=== PATIENT | female | born 1950 | race Caucasian/White ===

== ENCOUNTER 2024-10-15 16:07 | Emergency (ER) | payer MEDICARE, SELFPAY ==
[2024-10-15] VITALS (39 sets, daily range): BP systolic 155–229; BP diastolic 75–135; PULSE 84–117; RESP 18–33; TEMP 36.6; O2SAT 92–100
--- NOTE | ~2024-10-15 | XR_ITS ---
XR chest 1V portable Ordering provider: Linnea Yang MD History: 74 years Female with . shortness of breath . Comparison: None. FINDINGS: MEDIASTINUM: The cardiac silhouette is not enlarged. LUNGS: No infiltrates, effusions or pneumothorax. OTHER: No free air under the diaphragm. IMPRESSION: No acute cardiopulmonary pathology. Reviewed, dictated and finalized at location A.
--- NOTE | 2024-10-15 16:12 | ED_ITS ---
HPI - General Adult General Chief complaint: Upper Respiratory Infection Stated complaint: sob Time Seen by Provider: 10/15/24 16:12 Source: patient and family Mode of arrival: ambulatory Limitations: no limitations History of Present Illness HPI narrative: 74 years old white female came from home by private car complaining of been feeling sick with shortness of breath over 1 week, got worse over the last 3 days, patient been not able to eat, sleep, fever, productive cough. Last time was seen by a physician over 5 years ago, does not take medicines at home. Smokes 1-1 and half pack of cigarettes a day, patient is DNR. Related Data Allergies Allergy/AdvReac Type Severity Reaction Status Date / Time acetaminophen (From Percocet) Allergy Severe Hives Verified 10/15/24 16:11 oxycodone (From Percocet) Allergy Severe Hives Verified 10/15/24 16:11 Review of Systems 2 Review of Systems: All systems reviewed & are unremarkable except as noted in HPI and below Exam 2 Narrative: General appearance: Well-developed, well-nourished , labored breathing Skin: Normal color Head: Normocephalic, nontraumatic Eyes: Clear conjunctiva ENT: Oropharynx normal, ears normal, nose normal Neck: Supple, nontender Chest and respiratory: Airway patent, labored breathing, mild diminution of air entry bilaterally, scattered rhonchi and wheezing bilaterall Heart: y tachycardia, regular rhythm Abdomen: Soft, nontender, no organomegaly, quiet bowel sounds Vascular: Normal peripheral pulses, normal capillary refill. 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 DIOP, HOSPITALIST AT [facility] Date: 10/15/24 Time: 19:14 Vital Signs Vital signs: Vital Signs Pulse Oximetry 97 10/15/24 16:07 Oxygen Delivery Room Air 10/15/24 16:07 Temperature 36.6 C 10/15/24 16:08 Pulse Rate 97 10/15/24 19:46 Respiratory Rate 20 10/15/24 19:46 Blood Pressure 174/85 H 10/15/24 19:46 Pulse Oximetry 95 10/15/24 19:46 Oxygen Delivery Room Air 10/15/24 19:46 Medical Decision Making [facility] Narrative Medical decision making narrative: patient presents with shortness of breath Vital signs showing blood pressure 200/127, heart rate 112, respiration 24 otherwise within normal limit Physical examination showing a patient with labored breathing, widespread wheezing and rhonchi bilaterally Differential diagnosis include pneumonia, COPD exacerbation, congestive heart failure, pleural effusion Blood workup today includes CBC, CMP, proBNP, troponin, lactic acid, blood culture, CRP and coag showed SODIUM 123, CHLORIDE 86, CREATININE 1.16, C- REACTIVE PROTEIN 10.2 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8-10.8) K/mm3 RBC 4.20 (4.20-5.40) M/mm3 Hgb 12.7 (11.7-13.8) g/dL Hct 37.1 (35.0-42.0) % MCV 88.3 (78.0-102.0) fL MCH 30.2 (27.0-31.0) pg MCHC 34.2 (32-36) g/dL RDW 12.5 (11.6-14.4) % Plt Count 360 (150-420) K/mm3 MPV 9.6 (9.2-11.8) fl Immature Gran % (Auto) 0.7 H (0.0-0.0) % Neut % (Auto) 84.2 H (50.0-70.0) % Lymph % (Auto) 9.1 L (18.0-42.0) % Frio % (Auto) 5.7 (2.0-11.0) % Eos % (Auto) 0.1 L (1.0-6.0) % Baso % (Auto) 0.2 (0.0-1.0) % Lymph # (Auto) 0.74 L (1.10-4.50) K/mm3 Frio # (Auto) 0.46 (0.10-0.90) K/mm3 Eos # (Auto) 0.01 L (0.02-0.50) K/mm3 Baso # (Auto) 0.02 (0.00-0.10) K/mm3 Abs Immat Gran (auto) 0.06 H (0.00-0.00) K/mm3 Absolute Neuts (auto) 6.82 (1.70-7.20) K/mm3 Absolute Nucleated RBC 0.00 (0.00-0.00) K/mm3 Nucleated RBC % 0.0 (0-0.0) % PT 10.8 (9.50-12.1) Seconds INR 1.0 APTT 33.2 H (23.9-30.70) Sec Sodium 123 L (136-145) mmol/L Potassium 3.8 (3.5-5.1) mmol/L Chloride 86 L (98-108) mmol/L Carbon Dioxide 23 (21-32) mmol/L Anion Gap 14 H (4-12) mmol/L BUN 12 (7-18) mg/dL Creatinine 1.16 H (0.55-1.02) mg/dL Estim Creat Clear Calc 36 ml/min Estimated GFR 46 L (59 - ) Glucose 121 H (70-99) mg/dL Calculated Osmolality 256 L (285-295) mOsm/kg Lactic Acid 1.4 (0.4-2.0) mmol/L Calcium 9.4 (8.5-10.1) mg/dL Total Bilirubin 0.4 (0.00-1.00) mg/dL AST 40 H (15-37) U/L ALT 24 (14-59) U/L Alkaline Phosphatase 90 (46-116) U/L Troponin I 56.5 (0.00-60.4) ng/L C-Reactive Protein 10.2 H (0.0-0.9) mg/dL NT-Pro-B Natriuret Pep 2536 H (0-125) pg/mL Total Protein 8.1 (6.4-8.2) g/dL Albumin 3.3 L (3.4-5.0) g/dL ABG Data ABG results: 10/15/24 16:39 Puncture Site Left radial ABG pH 7.40 ABG pCO2 31.3 L ABG pO2 129.7 H ABG HCO3 19.0 L ABG O2 Saturation 98.6 H ABG Base Excess -4.7 L Oxyhemoglobin 97.2 O2 Delivery Device Other device O2 Liters/Min 8.0 Imaging Data Radiologist's impression: Impressions Chest X-Ray 10/15/24 16:49 IMPRESSION: No acute cardiopulmonary pathology. ECG Data EKG #1: Attestation: I personally reviewed and interpreted this ECG as follows: ECG completion date: 10/15/24 Interpretation: SINUS TACHYCARDIA AT 1 MINUTE, RHYTHM EKG, NO OLD EKG AVAILABLE FOR COMPARISON Critical Care Time Critical Care Time Critical Care Time: Yes Total Critical Care Time: 30 Discharge Plan Discharge Clinical Impression: Acute hypoxic respiratory failure, COPD (chronic obstructive pulmonary disease), Hypertension, Congestive heart failure, Hyponatremia Patient Disposition: Acute Care Hospital Condition: Guarded Prognosis Patient Language: Ghanaian Follow-up/Referrals: UNKNOWN,DOCTOR [Non-Staff] -
--- NOTE | 2024-10-15 16:19 | ECG_ITS ---
Test Date: 2024-10-15 16:55:21 Measurements Intervals [place] Rate: 109 P: 73 HI: 168 QRS: 30 QRSD: 76 T: 74 QT: 315 QTc: 425 Interpretive Statements SINUS TACHYCARDIA No previous ECG available for comparison Electronically Signed On 10-16-2024 14:12:26 CDT by Radha Nagy M.D.
--- NOTE | 2024-10-15 16:30 | PC.NURSE ---
ERP aware of elevated blood pressure.
[2024-10-15] MEDS: IPRATROPIUM 0.5 MG/ALBUTEROL SULFATE 2.5 MG AMPUL.NEB 3 ML INHALATION (16:32)
--- OUTSIDE RECORDS SUMMARY | 2024-10-15 16:36 | XMS_ITS | Clinical Summary ---
Author Organization [facility] Address [address] [place] [address] Phone Care Team Providers Care Extension Supervisor Name Role Phone Gerard Orozco MD Primary Care Provider [phone] Allergies Active Allergy Reactions Criticality Noted Date Comments Oxycodone-Acetaminophen Unknown Silver Sulfadiazine Other (see Comments) Caused burning to skin Medications omeprazole (PRILOSEC) 40 MG CAPSULE DELAYED RELEASE Acti ve amLODIPine (NORVASC) 5 MG Tablet Active Cholecalciferol (VITAMIN D) 2000 UNIT Tablet Take by mouth. Active cyanocobalamin 1000 MCG Tablet Take 1,000 mcg by mouth daily. Active Multiple Vitamins-Minera ls (MULTIVITAMIN PO) Take by mouth. Active gabapentin (NEURONTIN) 100 MG Capsule Pt is to take 100 mg at bed time for 7 days then increase to 1 tab twice a day. 60 Cap 3 09/22/2017 Active Active Problems Patient Care Coordination No te Formatting of this note migh t be different from the original. NO DRUG 04/25/18 NO DRUG 10/25/17 01/20/2017: Patient does not qualify for OCM Problem Noted Date Diagnosed Date Pulmonary nodules 07/28/2017 Malignant neoplasm of sigmoi d colon -- stage [id number] 2 MMR present Resolved Problems Problem Noted Date Diagnosed Date Resolved Date Drug-induced neutropenia Family History Medical History Relation Name Comments Cancer Father possibly f rom lung cancer, but patient not sure Relation Name Status Comments Father Social History Tobacco Use Types Packs/Day Years Used Date Smoking Tobacco: Every Day Cigarettes Smokeless Tobacco: Never Alcohol Use Standard Drinks/Week Comments Not Asked 0 (1 standard drink = 0.6 oz pur e alcohol) Comments Unknown Sex and Gender Information Value Date Recorded Sex Assigned at Not on file Legal Sex Female 8:08 AM CDT Gender Identity Not on file Sexual Orientation Not on file Last Filed Vital Signs Vital Sign Reading Time Taken Comments Blood Pressure 138/100 10/27/2017 1:11 PM CDT Pulse 90 10/27/2017 1:11 PM CDT Temperature 36.6 C (97.8 F) 10/27/2017 1:11 PM CDT Respiratory Rate - - Oxygen Saturation 95% 10/27/2017 1:11 PM CDT Inhaled Oxygen Concentration - - Weight 83.5 kg (184 lb) 10/27/2017 1:11 PM CDT Height 157.5 cm (5' 2 ) 07/28/2017 12:57 PM [employer] D[employer] CONSULTANT Body Mass Index 33.65 07/28/2017 12:57 PM [employer] D[employer] CONSULTANT Plan of Treatment Health Maintenance Due Date Last Done Comments DEXA Bone Density 1950 Hepatitis C Virus (HCV) Screening 1950 TdaP Immunization 1950 SARS-COV-2 Immunization (#1) 1955 Pneumococcal Immunization (5 0+ years) (1 of 2 - PCV) 1969 Zoster Immunization (1 of 2) 1969 Cologuard 01/27/2000 Immunochemical Fecal Occult Blood 01/27/2000 Mammogram 01/27/2000 Colonoscopy 08/18/2023 08/17/2013 Colorectal Cancer Screening 08/18/2023 Influenza Immunization (#1) 2024 Respiratory Syncytial Virus (RSV) Immunization (Adult) (1 - 1-dose 75+ series) 2025 08/17/2013 Hepatitis B Immunization Aged Out No longer eligible based on patient's age to complete this topic Meningococcal Immunization (ACWY) Aged Out No longer eligible based on patient's age to complete this topic Rotavirus Immunization Aged Out No lo nger eligible based on patient's age to complete this topic Procedures Procedure Name Priority Date/Time Associated Diagnosis Comments COLONOSCOPY Routine 08/17/2013 from Last 3 Months or Most Recently Relevant to Health Maintenance Results * COLONOSCOPY (08/17/2013) us Unknown Provider PROCEDURE/MINOR SURGICAL ORDERA BLES Final Result from Last 3 Months or Most Recently Relevant to Health Maintenance Insurance MEDICARE [employer] Care Teams Extension Supervisor Relationship Specialty [place] [address] [place], [place] [id number] PCP - General Family Medicine 10/09/15
[2024-10-15 16:43] LABS: Base Excess ABG -4.7 mmol/L (0-2); Oxygen Saturation ABG 98.6 % (95-97); Oxyhemoglobin 97.2 % (94-100); PCO2 ABG 31.3 mmHg (35-45); PO2 ABG 129.7 mmHg (75-85)
[2024-10-15 16:47] LABS: Basophils Absolute Auto 0.02 K/mm3 (0.00-0.10); Basophils Percent Auto 0.2 % (0.0-1.0); Eosinophils Absolute Auto 0.01 K/mm3 (0.02-0.50); Eosinophils Percent Auto 0.1 % (1.0-6.0); Hematocrit 37.1 % (35.0-42.0); Hemoglobin 12.7 g/dL (11.7-13.8); Immature Granulocyte Absolute 0.06 K/mm3 (0.00-0.00); Immature Granulocyte Percent A 0.7 % (0.0-0.0); Lymphocytes Absolute Auto 0.74 K/mm3 (1.10-4.50); Lymphocytes Percent Auto 9.1 % (18.0-42.0); Mean Corpuscular HGB Conc 34.2 g/dL (32-36); Mean Corpuscular Hemoglobin 30.2 pg (27.0-31.0); Mean Corpuscular Volume 88.3 fL (78.0-102.0); Mean Platelet Volume 9.6 fl (9.2-11.8); Monocytes Absolute Auto 0.46 K/mm3 (0.10-0.90); Monocytes Percent Auto 5.7 % (2.0-11.0); Neutrophils Absolute Auto 6.82 K/mm3 (1.70-7.20); Neutrophils Percent Auto 84.2 % (50.0-70.0); Platelet Count Result 360 K/mm3 (150-420); Red Cell Distribution Width 12.5 % (11.6-14.4); White Blood Count 8.1 K/mm3 (4.8-10.8)
[2024-10-15 16:48] LABS: Modified Allen's Test Pass; Site Drawn LEFT RADIAL
[2024-10-15 16:49] LABS: Device OTHER DEVICE
--- OUTSIDE RECORDS SUMMARY | 2024-10-15 16:49 | XMS_ITS | Encounter Summary ---
Author Organization 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 Role Phone Unavailable Primary Care Provider Unavailabl e Encounter Details Date Type Department Care Team (Late st Contact Info) Description 10/27/2017 Abstract [facility] CONVERSION [address] [place] [address] , Generic ConversionMD Social History Tobacco Use Types Packs/Day Years Used Date Smoking Tobacco: Never Assessed Comments Unknown Sex and Gender Information Value Date Recorded Sex Assigned at Not on file Legal Sex Female 5:44 PM CDT Gender Identity Not on file Sexual Orientation Not on file documented as of this encounter Plan of Treatment Not on file documented as of this encounter Visit Diagnoses Not on filedocumented in this encounter
--- OUTSIDE RECORDS SUMMARY | 2024-10-15 16:49 | XMS_ITS | Clinical Summary ---
Author Organization [facility] Address [address] [place] [address] Care Team Providers Care Head Of English Name Role Phone Unavailable Primary Care Provider Unavailabl e Social History Tobacco Use Types Packs/Day Years Used Date Smoking Tobacco: Never Assessed Comments Unknown Sex and Gender Information Value Date Recorded Sex Assigned at Not on file Legal Sex Female 5:44 PM CDT Gender Identity Not on file Sexual Orientation Not on file Last Filed Vital Signs Vital Sign Reading Time Taken Comments Blood Pressure 148/88 04/28/2017 2:49 PM CAR SALESMAN Pulse 105 04/28/2017 2:49 PM CAR SALESMAN Temperature - - Respiratory Rate - - Oxygen Saturation - - Inhaled Oxygen Concentration - - Weight 82.1 kg (181 lb) 04/28/2017 2:49 PM CAR SALESMAN Height 162.6 cm (5' 4 ) 04/28/2017 2:49 PM CAR SALESMAN Body Mass Index 31.07 04/28/2017 2:49 PM CAR SALESMAN Plan of Treatment Health Maintenance Due Date Last Done Comments Colorectal Cancer Screening Colonoscopy (10 Years) 1950 Hepatitis C 01/27/1968 DTaP, Tdap and Td Vaccines ( 1 - Tdap) 1969 Mammogram Screening 1990 Pneumococcal Vaccine: 50+ Ye ars (1 of 1 - PCV) 01/27/2000 Zoster Vaccines (1 of 2) 01/27/2000 Dexa Scan (General) 2015 COVID-19 Vaccine ( - 2023-2 5 season) 2024 RSV Immunization or 60+ Years (1 - 1-dose 75+ series) 2025 Meningococcal B Vaccine Aged Out No l onger eligible based on patient's age to complete this topic Meningococcal Vaccine Aged Out No anna vannesa eligible based on patient's age to complete this topic RSV Immunizations Under 20 Months Aged Out No longer eligible based on patient's age to complete this topic
[2024-10-15 17:00] LABS: Partial Thromboplastin Time 33.2 Sec (23.9-30.70); Prothrombin Time 10.8 Seconds (9.50-12.1)
[2024-10-15 17:05] LABS: Lactic Acid Reflex 1.4 mmol/L (0.4-2.0)
[2024-10-15 17:06] LABS: Alanine Aminotransferase 24 U/L (14-59); Albumin Level 3.3 g/dL (3.4-5.0); Alkaline Phosphatase 90 U/L (46-116); Anion Gap 14 mmol/L (4-12); Aspartate Amino Transferase 40 U/L (15-37); Bilirubin,Total 0.4 mg/dL (0.00-1.00); Blood Urea Nitrogen 12 mg/dL (7-18); CRP 10.2 mg/dL (0.0-0.9); Calcium 9.4 mg/dL (8.5-10.1); Carbon Dioxide 23 mmol/L (21-32); Chloride 86 mmol/L (98-108); Estimated CRCL calculation 36 ml/min; Estimated Glomerular Filt Rate 46; Glucose 121 mg/dL (70-99); Osmolality Calculated 256 mOsm/kg (285-295); Potassium 3.8 mmol/L (3.5-5.1); Sodium 123 mmol/L (136-145); Total Protein 8.1 g/dL (6.4-8.2); Troponin I 56.5 ng/L (0.00-60.4)
[2024-10-15] MEDS: methylPREDNISolone SOD SUCC 125 MG VIAL IV PUSH (17:07)
[2024-10-15 17:12] LABS: NT Pro B Type Natriuretic Pept 2536 pg/mL (0-125)
[2024-10-15] MEDS: NITROGLYCERIN OINTMENT 1 INCH DOSE TRANSDERM ×2 (17:53→19:07)
[2024-10-15] MEDS: cloNIDine HCL 0.1 MG TABLET PO ×2 (17:53→20:37)
[2024-10-15] MEDS: FUROSEMIDE INJ 40 MG/4 ML VIAL 60 MG IV PUSH (18:38)
--- NOTE | 2024-10-15 18:38 | PC.NURSE ---
Nitro paste removed per ERP Dr. Yang
--- NOTE | 2024-10-15 18:55 | PC.NURSE ---
[facility]. REPORT RECEIVED FROM POLLO WEBER
--- NOTE | 2024-10-15 20:13 | PC.NURSE ---
PATIENT REPORTS THAT SHE HAD ALL HER CANCER TREAT[place] [facility] [place]. HER BLADDER/COLON CANCER URGERY AND UROSTOMY PLACEMENT WAS DONE AT [facility] IN [facility].
--- NOTE | 2024-10-15 20:34 | PC.NURSE ---
PATIENT BLOOD PRESSURE WAS REPORTED TO DR RUIZ. NEW ORDER RECEIVED
--- NOTE | 2024-10-15 20:57 | PC.NURSE ---
800 ml urine emptied from urostomy
[2024-10-15] MEDS: LABETALOL HCL INJ 100 MG/20 ML VIAL 10 MG IV PUSH (21:00)
--- NOTE | 2024-10-15 21:26 | PC.NURSE ---
KAREN WEBER AT [facility] UPDATED ON MEDICATIONS THAT WERE GIVEN PRIOR TO PATIENT LEAVING FOR ELEVATED BLOOD PRESSURE
--- NOTE | 2024-10-17 12:58 | PC.NURSE ---
preliminary blood cultures x2 reviewed. no growth to date
== END 2024-10-15 21:18 | disposition short-term general hospital (02) ==
PROVIDERS: Emergency Provider Emergency Medicine; PCP Family Medicine
DX: J96.01 Acute respiratory failure with hypoxia (principal); J44.9 Chronic obstructive pulmonary disease, unspecified; I11.0 Hypertensive heart disease with heart failure; I50.9 Heart failure, unspecified; E87.1 Hypo-osmolality and hyponatremia
CPT/HCPCS: 36415; 36600; 71045; 80053; 82805; 83605; 83880; 84484; 85025; 85610; 85730; 86140; 87040; 93005; 94640; 96374; 96375; 99285; A9270; J1938; J2919